=== PATIENT | male | born 1960 | race Caucasian/White ===

== ENCOUNTER → 2016-06-15 | Outpatient (CLI) | payer BC ==
[2016-06-15 10:06] LABS: BILIRUBIN,URINE Negative (Negative); CLARITY,URINE Clear; COLOR,URINE Yellow; GLUCOSE, URINE (UA) Negative (Negative); LEUKOCYTE ESTERASE ,URINE Negative (Negative); PH,URINE 7.5 (5.0 - 8.0); UROBILINOGEN,URINE 0.2 mg/dL (0.2-1.0)
[2016-06-15 10:10] LABS: ALBUMIN 4.4 g/dL (3.4-5.0); ALKALINE PHOSPHATASE 83 U/L (38-126); BUN/CREATININE RATIO 12 (10-20); TOTAL PROTEIN 7.6 g/dL (6.4-8.5)
[2016-06-15 10:22] LABS: BASOPHILS % (AUTO) 1 % (0-2); EOSINOPHILS # (AUTO) 0.3 10^3uL; EOSINOPHILS % (AUTO) 3 % (0-4); LYMPHOCYTES # (AUTO) 1.7 X10^3; MEAN CORPUSCULAR HEMOGLOBIN 29.9 PG (26.0-34.0); MEAN CORPUSCULAR HGB CONC 34.4 g/dL (31.0-37.0); MEAN CORPUSCULAR VOLUME 87 FL (80-100); MEAN PLATELET VOLUME 10.5 FL (6.0-9.5); MONOCYTES # (AUTO) 0.8 X10^3; MONOCYTES % (AUTO) 9 % (3-11); NEUTROPHILS # (AUTO) 6.1 X10^3; NEUTROPHILS % (AUTO) 68 % (51-67); PLATELET COUNT 276 10^3uL (150-450); WHITE BLOOD COUNT 8.88 10^3uL (4.0-11.0)
[2016-06-15 10:36] LABS: CREATINE KINASE 451 U/L (55-170)
--- NOTE | 2016-06-15 12:01 | Diagnostic Imaging Report ---
PA and lateral chest. INDICATION: Physical exam. Comparison made with prior study from June 21, 2014. FINDINGS: When compared to the prior examination, there has not been evidence of interval change. There is elevation of the right hemidiaphragm but overall the lungs appear to be hyperinflated as the diaphragms are flattened on the lateral view. Heart is stable. There is no evidence of failure. There is no focal infiltrate. There is no pneumothorax or evidence of effusion. No acute osseous abnormality demonstrated. IMPRESSION: 1. There is evidence of air trapping with flattening of the diaphragms on the lateral view suggesting underlying COPD. No acute superimposed cardiopulmonary process evident. Dictated by: Dictated on workstation # [id number]
== END ==
LOC: RT 09:04
PROVIDERS: ATTEND Family Medicine
DX: Z00.00 Encounter for general adult medical examination without abnormal findings (principal); Z12.5 Encounter for screening for malignant neoplasm of prostate
CPT/HCPCS: 36415; 71020; 80053; 80061; 81003; 82550; 83036; 84153; 84436; 84443; 85025; 93005

== ENCOUNTER → 2016-09-07 | Outpatient (CLI) | payer BC | LOC: LAB 09:17 | PROVIDERS: ATTEND Family Medicine | DX: E78.2 Mixed hyperlipidemia (principal); G72.0 Drug-induced myopathy | CPT/HCPCS: 36415; 80061; 82550 ==